=== PATIENT | female | born 2000 | race Caucasian/White ===

== ENCOUNTER 2022-03-30 23:39 | Emergency (ER) | payer SELFPAY ==
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
[2022-03-30 23:40] VITALS: BP 134/86; PULSE 95; RESP 18; TEMP 37.1; O2SAT 99
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
[2022-03-31 00:10] LABS: Pregnancy On Board Control Positive; Urine Pregnancy Test Negative
[2022-03-31] MEDS: KETOROLAC 30 MG/ML VIAL (*BKC) IM (00:51)
[2022-03-31 01:34] VITALS: BP 113/70; PULSE 76; RESP 16; O2SAT 99
== END 2022-03-31 01:40 | disposition home or self-care (01) ==
PROVIDERS: Emergency Provider Internal Medicine Critical Care Medicine
DX: M54.50 Low back pain, unspecified (principal); V59.88XA Occupant (driver) (passenger) of pick-up truck or van injured in other specified transport accidents, initial encounter
CPT/HCPCS: 72100; 81025; 96372; 99283; J1885

== ENCOUNTER 2022-07-01 14:25 | Emergency (ER) | payer SELFPAY ==
--- NOTE | ~2022-07-01 | XR_ITS ---
EXAM: XR lumbar spine 2-3V DATE: 07/01/2022 15:54 HISTORY: Fall TODAY,GENERAL LBP . COMPARISON: 03/31/2022. FINDINGS: 5 nonrib-bearing lumbar-type vertebral bodies. Pedicles intact. Normal vertebral body alig nment. Vertebral body heights preserved. Disc spaces maintained. Normal facets and posterior elements . No fracture or dislocation. IUD projecting over the pelvis. IMPRESSION: No acute fracture or traumatic malalignment detected in the lumbar spine. Reviewed, dictated and finalized at location K.
[2022-07-01 14:29] VITALS: BP 116/74; PULSE 85; RESP 18; TEMP 36.7; O2SAT 100
--- NOTE | 2022-07-01 14:35 | ED.BACK ---
HPI - Back Pain/Injury General Chief Complaint: Back Pain/Injury Stated Complaint: Fall/lower back pain Time Seen by Provider: 07/01/22 14:34 Source: patient and RN notes reviewed Mode of arrival: ambulatory Limitations: no limitations History of Present Illness HPI Narrative: patient states that she was carrying some laundry down the steps when she slipped and fell. She hit her low back on a step and then down onto the floor. She does it hurts when she walks. MD elicited complaint: back injury Pertinent past history: recent trauma Quality: sharp and aching Location: lumbar spine Radiation: none Exacerbating factors: movement Relieving factors: supine Context: fall Associated symptoms: denies other symptoms Work related injury: No Related Data Home Medications Medication Instructions Recorded Confirmed sertraline 50 mg tablet 50 mg PO HS 07/01/22 07/01/22 Allergies Allergy/AdvReac Type Severity Reaction Status Date / Time No Known Allergies Allergy Verified 07/01/22 14:46 Review of Systems Review of Systems: All systems reviewed & are unremarkable except as noted in HPI and below PMFSH Past Medical History Medical History (Updated 07/01/22 @ 16:19 by Jose Maria Pradhan MD) Depression Surgical History Surgical History (Updated 07/01/22 @ 14:46 by Jose Maria Pradhan MD) No pertinent past surgical history Exam Const: General: healthy appearing, no acute distress and alert Nutritional Appearance: well nourished Orientation/consciousness: patient oriented x3 Limitations: no limitations Other: female tech in room during examination. HENMT: Head: normal to inspection Ears: external ears normal Face/Nose/Sinus: Normal external nose present Face and sinus: normal facial exam Mouth: Yes moist mucous membranes Eyes: Conjunctivae: conjunctivae normal Pupils: Equal, round and reactive pupils present EOM: EOMs intact bilaterally Neck: Neck: normal visual inspection Resp: Effort & Inspection: normal respiratory effort Auscultation: clear to auscultation bilaterally Cardio: Rate: regular rate Rhythm: regular rhythm GI: GI Palp: Yes Soft to palpation and No Tenderness to palpation present (GI) Auscultation: normal bowel sounds Back/Spine/Pelvis: Cervical Spine: cervical ROM normal Thoracic/Lumbar Spine: thoraco-lumbar ROM normal, No thoraco-lumbar spasm and lumbar spinal tenderness (mild) at L4 and at L5 Skin: General skin exam: normal color Wounds: no wounds Neuro: General: patient oriented x3, moves all extremities, no focal motor deficits and CN's II-XI intact bilaterally Speech: normal speech Gait exam (Neuro): Normal gait present Extrem: General: normal to inspection and no clubbing, cyanosis or edema Psych: Mental Status: mental status grossly normal Affect: normal affect Attitude: cooperative Course Vital Signs Vital signs: Vital Signs Oxygen Delivery Room Air 07/01/22 14:25 Temperature 36.7 C 07/01/22 14:29 Pulse Rate 68 07/01/22 16:20 Respiratory Rate 16 07/01/22 16:20 Blood Pressure 118/68 07/01/22 16:20 Pulse Oximetry 98 07/01/22 16:20 Oxygen Delivery Room Air 07/01/22 16:20 MDM - Back Pain/Injury Differential Diagnosis Differential diagnosis: Likely lumbar radiculopathy, sciatica, strain of lumbar region and other ( lumbar spine fracture, lumbar spine contusion) Discharge Plan Discharge Clinical Impression: Contusion of lower back Qualifiers: Encounter type: initial encounter Qualified Code(s): S30.0XXA - Contusion of lower back and pelvis, initial encounter Patient Disposition: Home, Self-Care Condition: Stable Instructions: Contusion in Adults (ED) Additional Instructions: use Tylenol and or Motrin as needed for pain. Can use ice for the 1st 24-48 hours then switch to heat. Prescriptions: No Action sertraline 50 mg tablet 50 mg PO HS Follow-up/Referrals: UNKNOWN,DOCTOR [Primary Care Provider]
[2022-07-01 16:20] VITALS: BP 118/68; PULSE 68; RESP 16; O2SAT 98
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
== END 2022-07-01 16:20 | disposition home or self-care (01) ==
PROVIDERS: Emergency Provider Emergency Medicine
DX: S30.0XXA Contusion of lower back and pelvis, initial encounter (principal); W10.9XXA Fall (on) (from) unspecified stairs and steps, initial encounter; F32.A Depression, unspecified
CPT/HCPCS: 72100; 99283